=== PATIENT | male | born 1990 | race Caucasian/White ===

== ENCOUNTER 2023-11-22 16:23 | Emergency (ER) | payer SELFPAY ==
[~2023-11-22] VITALS: Ht 170.2 cm; Wt 65.8 kg
[2023-11-22 16:35] VITALS: O2SAT 100
[2023-11-22] MEDS ORDERED: IBUPROFEN 600 MG TAB PO STA (17:39)
[2023-11-22] MEDS ORDERED: BACITRACIN ZINC 15 GM OINT TOP SCH (17:45)
[2023-11-22] MEDS: LIDOCAINE VISC 2% SOLN 15 ML UDC PO ONE (17:47)
[2023-11-22] MEDS ORDERED: CEPHALEXIN500 MG PO (18:15)
[2023-11-22] MEDS ORDERED: LIDOCAINE HCL5 ML PO (18:25)
== END 2023-11-22 18:50 | disposition home or self-care (01) ==
LOC: FSED 16:32
DX: T28.0XXA Burn of mouth and pharynx, initial encounter (principal); T65.891A Toxic effect of other specified substances, accidental (unintentional), initial encounter; Y99.0 Civilian activity done for income or pay
CPT/HCPCS: 99284